=== PATIENT | female | born 1990 | race Caucasian/White ===

== ENCOUNTER 2022-01-18 14:24 | Emergency (ER) | payer MEDICAID, OTHER ==
[~2022-01-18] VITALS: Ht 172 cm; Wt 117.9 kg
[2022-01-18] MEDS ORDERED: morphine INJ 10 MG/ML 1ML (SYR OR VIAL) IVP STA (14:29)
--- NOTE | 2022-01-18 14:38 | ED Fall/Injury ---
General Chief Complaint: Trauma-Non Activation Stated Complaint: FELL Source: patient Exam Limitations: no limitations (EDER MCDONOUGH APRN) History of Present Illness Date Seen by Provider: Jan 18, 2022 Time Seen by Provider: 14:33 Initial Comments to ER by [facility] with reports of severe low back pain after a fall. She states that this happened just prior to arrival she fell going down some stairs landing on her buttock. She has some severe pain to the low back at the top of the gluteal cleft, she has some tingling pain going down the right leg. No loss of bowel or bladder control. She does have some pain in the midthoracic spine. She did hit the back of her head but did not lose consciousness. She was given 4 mg of Zofran and 50 mcg of fentanyl in route to the hospital by EMS. History of protein S deficiency for which she is on aspirin daily. She smokes about 5 to 10 cigarettes/day. History of uterine ablation. Occurred: just prior to arrival Severity: moderate Injuries/Pain Location: back Context: unknown Loss of Consciousness: no loss of consciousness Modifying Factors: Worse With Movement Associated Symptoms (Fall): Denies Symptoms (EDER MCDONOUGH APRN) Allergies and Home Medications Allergies Coded Allergies: ciprofloxacin (Verified Allergy, Unknown, 01/18/22) clindamycin (Verified Allergy, Unknown, 01/18/22) Patient Home Medication List Home Medication List Reviewed: Yes (EDER MCDONOUGH APRN) Hydrocodone/Acetaminophen (Hydrocodone-Acetamin 5-325 mg) 1 Each Tablet, 1 TAB PO Q4H PRN for PAIN-MODERATE (5-7) Prescribed by: EDER MCDONOUGH on 01/18/22 1523 Ibuprofen (Ibuprofen) 800 Mg Tablet, 800 MG PO Q8H PRN for PAIN Prescribed by: EDER MCDONOUGH on 01/18/22 1522 Review of Systems Review of Systems Constitutional: see HPI Eyes: No Symptoms Reported Ears, Nose, Mouth, Throat: no symptoms reported Respiratory: no symptoms reported Cardiovascular: no symptoms reported Genitourinary: no symptoms reported Musculoskeletal: see HPI, back pain Skin: no symptoms reported Psychiatric/Neurological: No Symptoms Reported (EDER MCDONOUGH APRN) Past Oiajsua-Exehkq-Tjwase Hx Patient Social History Tobacco Use?: Yes Tobacco type used: Cigarettes Smoking Status: Current Everyday Smoker Substance use?: No Alcohol Use?: No Pt feels they are or have been: No (EDER MCDONOUGH APRN) Past Medical History Surgery/Hospitalization HX: PMH: ANXIETY (EDER MCDONOUGH APRN) Physical Exam Vital Signs Vital Signs - First Documented 01/18/22 14:30 Temp 36.2 Pulse 76 Resp 18 B/P (MAP) 139/83 (101) Pulse Ox 100 (ANITA NORMAN MD) Vital Signs Capillary Refill : (EDER MCDONOUGH APRN) Height, Weight, BMI Height: '" Weight: lbs. oz. kg; BMI Method: General Appearance: WD/WN, no apparent distress HEENT: PERRL/EOMI, normal ENT inspection Neck: non-tender, full range of motion Respiratory: no respiratory distress, no accessory muscle use Gastrointestinal: normal bowel sounds, non tender, soft Back: other (She is preferentially laying on her left side. She is in a rigid cervical collar. Complains of severe pain tenderness to palpation over the sacrum and lumbar spine as well as the thoracic spine. No pain in the cervical spine.) Extremities: normal range of motion, non-tender Neurologic/Psychiatric: alert, normal mood/affect, oriented x 3 Skin: normal color, warm/dry (EDER MCDONOUGH APRN) Progress/Results/Core Measures Results/Orders Vital Signs/I&O 01/18/22 01/18/22 14:30 15:41 Temp 36.2 Pulse 76 70 Resp 18 16 B/P (MAP) 139/83 (101) 122/76 Pulse Ox 100 99 (ANITA NORMAN MD) Diagnostic Imaging Diagonstic Imaging: CT Comments [facility] [place] [place] NAME: TRACYNITIN MED REC#: [id number] PT STATUS: REG ER : 1990 PHYSICIAN: EDER MCDONOUGH APRN ADMIT DATE: 01/18/22/ER Draft Date of Exam:01/18/22 CT HEAD/CERVICAL SPINE WO PROCEDURE: CT head and CT cervical spine without contrast. TECHNIQUE: Multiple contiguous axial images were obtained through the brain and cervical spine without the use of intravenous contrast. Sagittal and coronal reformations through the cervical spine were then performed. Auto Exposure Controls were utilized during the CT exam to meet ALARA standards for radiation dose reduction. INDICATION: Fall. COMPARISON: No prior studies are available for comparison. CT HEAD: Ventricles and sulci are within normal limits. No sulcal effacement or midline shift is identified. No acute intra-axial or extra-axial hemorrhage is detected. Cisterns are patent. Visualized paranasal sinuses are clear. IMPRESSION: No acute intracranial process is detected. CT CERVICAL SPINE: Alignment is normal. There is degenerative disc disease at the C5-C6 level with disc space narrowing and marginal spurring. No fractures are seen. Prevertebral tissues are within normal limits. Odontoid is intact. IMPRESSION: Cervical spondylosis. No acute bony abnormality is detected. Dictated on workstation # [id number] Dict: 01/18/22 1506 Trans: 01/18/22 1509 PJE [id number] Interpreted by: NOHELIA DEJESUS MD Electronically signed by: (EDER MCDONOUGH APRN) Departure Communication (Admissions) NAME: NITIN MOLINA Ángela [facility] REC#: [id number] PT STATUS: REG ER : 1990 PHYSICIAN: EDER MCDONOUGH APRN ADMIT DATE: 01/18/22/ER Draft Date of Exam:01/18/22 CT THORACIC/LUMBAR SPINE WO EXAMINATION: CT thoracic and lumbar spine without contrast. TECHNIQUE: Multiple contiguous axial images were obtained through the thoracic and lumbar spine without the use of intravenous contrast. Sagittal and coronal reformations were then performed. All CT scans use one or more of the following dose optimizing techniques: automated exposure control, MA and/or KvP adjustment based on patient size and exam type or iterative reconstruction. HISTORY: Back pain after fall. COMPARISON: None available. FINDINGS: The alignment of the thoracic and lumbar spine is normal. Vertebral body heights are normal and no fracture is seen. Facet joints are normal. Disc heights are normal. There is no spinal canal stenosis. Limited views of the soft tissues show no abnormality. The aorta is normal. IMPRESSION: No acute osseous abnormality of the thoracic or lumbar spine. Dictated on workstation # [id number] Dict: 01/18/22 1513 Trans: 01/18/22 1520 PJE [id number] Interpreted by: SHANE,ALICIA C DO Electronically signed by: (EDER MCDONOUGH APRN) Impression Primary Impression: Acute low back pain Disposition: 01 HOME, SELF-CARE Condition: Stable Departure-Patient Inst. Decision time for Depature: 15:19 (EDER MCDONOUGH APRN) Patient Instructions: Low Back Pain ED Add. Discharge Instructions: 1. Medication as directed. Rest. Activity as tolerated. All discharge instructions reviewed with patient and/or family. Voiced understanding. Scripts Ibuprofen (Ibuprofen) 800 Mg Tablet 800 MG PO Q8H PRN for PAIN, #30 TAB 0 Refills Prov: EDER MCDONOUGH APRN 01/18/22 Hydrocodone/Acetaminophen (Hydrocodone-Acetamin 5-325 mg) 1 Each Tablet 1 TAB PO Q4H PRN for PAIN-MODERATE (5-7), #10 TAB Prov: EDER MCDONOUGH APRN 01/18/22 Work/School Note: Work Release Form Date Seen in the Emergency Department: Jan 18, 2022 Return to Work: Jan 21, 2022 ATTENDING PHYSICIAN NOTE: I was physically present as attending physician in the emergency department during the care of this patient, but I was not directly involved in the decision making or delivery of care for this patient. (ANITA NORMAN MD) EDER MCDONOUGH APRN Jan 18, 2022 14:38 ANITA NORMAN MD Jan 20, 2022 12:59
--- NOTE | 2022-01-18 15:10 | Diagnostic Imaging Report ---
PROCEDURE: CT head and CT cervical spine without contrast. TECHNIQUE: Multiple contiguous axial images were obtained through the brain and cervical spine without the use of intravenous contrast. Sagittal and coronal reformations through the cervical spine were then performed. Auto Exposure Controls were utilized during the CT exam to meet ALARA standards for radiation dose reduction. INDICATION: Fall. COMPARISON: No prior studies are available for comparison. CT HEAD: Ventricles and sulci are within normal limits. No sulcal effacement or midline shift is identified. No acute intra-axial or extra-axial hemorrhage is detected. Cisterns are patent. Visualized paranasal sinuses are clear. IMPRESSION: No acute intracranial process is detected. CT CERVICAL SPINE: Alignment is normal. There is degenerative disc disease at the C5-C6 level with disc space narrowing and marginal spurring. No fractures are seen. Prevertebral tissues are within normal limits. Odontoid is intact. IMPRESSION: Cervical spondylosis. No acute bony abnormality is detected. Dictated by: Dictated on workstation # [id number]
--- NOTE | 2022-01-18 15:20 | Diagnostic Imaging Report ---
EXAMINATION: CT thoracic and lumbar spine without contrast. TECHNIQUE: Multiple contiguous axial images were obtained through the thoracic and lumbar spine without the use of intravenous contrast. Sagittal and coronal reformations were then performed. All CT scans use one or more of the following dose optimizing techniques: automated exposure control, MA and/or KvP adjustment based on patient size and exam type or iterative reconstruction. HISTORY: Back pain after fall. COMPARISON: None available. FINDINGS: The alignment of the thoracic and lumbar spine is normal. Vertebral body heights are normal and no fracture is seen. Facet joints are normal. Disc heights are normal. There is no spinal canal stenosis. Limited views of the soft tissues show no abnormality. The aorta is normal. IMPRESSION: No acute osseous abnormality of the thoracic or lumbar spine. Dictated by: Dictated on workstation # [id number]
[2022-01-18] MEDS ORDERED: ACHD5005 PO (15:22)
[2022-01-18] MEDS ORDERED: IBUP-1780 PO (15:22)
[2022-01-18] MEDS ORDERED: KETOROLAC 30 MG/ML VIAL IVP ONE (15:30)
[2022-01-18 15:41] VITALS: BP 122/76
== END 2022-01-18 15:41 | disposition home or self-care (01) ==
LOC: ER 14:25
DX: M54.50 Low back pain, unspecified (principal); F17.210 Nicotine dependence, cigarettes, uncomplicated
CPT/HCPCS: 70450; 72125; 72128; 72131

== ENCOUNTER 2022-01-22 00:08 | Emergency (ER) | payer MEDICAID ==
[~2022-01-22 00:08] MED LIST: ACHD5005 PO; IBUP-1780 PO
--- NOTE | 2022-01-22 00:45 | ED Fall/Injury ---
General Chief Complaint: Back Problems Stated Complaint: TAILBONE PAIN,FALL ON 01.18.22 Nursing Triage Note: PT TO ER BY WC WITH FAMILY WITH C/O TAILBONE PAIN THAT HAS WORSENED SINCE A FALL THURSDAY. PT STATES THE PAIN FEELS LIKE IT IS MOVING TOWARD HER PELVIC AREA AND PUBIC AREA Source: patient, old records History of Present Illness Date Seen by Provider: Jan 22, 2022 Time Seen by Provider: 00:24 Initial Comments PT ARRIVES VIA POV FROM HOME PT WAS SEEN HERE ON 01/18/22 AFTER SLIPPING AND FALLING DOWN 3 CONCRETE STEPS ON HER FRONT PORCH PT STATES SHE HIT THE BACK OF HER HEAD, AND HAD BRIEF LOSS OF CONSCIOUS--"FOR A FEW SECONDS" STATES SHE ALSO HIT HER BACK ON A STEP WELL PT HAD CT OF HEAD AND CERVICAL SPINE, THORACIC AND LUMBAR SPINE--ALL WHICH DID NOT SHOW ANY ACUTE INJURY PT WAS GIVEN RX FOR HYDROCODONE AND IBUPROFEN 800 --STATES SHE TOOK 1 AT [facility]700 ON 01/21/22 STATES SHE TOOK A TYLENOL AND IBUPROFEN AT 1730 TONIGHT C/O PAIN TO TAILBONE--HURTS TO STAND OR WALK, HURTS TO STRAIN TO HAVE A BM STATES PAIN IS NOW GOING AROUND TO THE FRONT TO HER PUBIC BONE AND PELVIC AREA NO VAGINAL BLEEDING OR RECTAL BLEEDING NO LOSS OF BOWEL OR BLADDER CONTROL RIGHT LEG FEELS TINGLY AT TIMES STATES HER NECK IS SORE AND SHE IS JUST SORE ALL OVER DENIES ANY PRIOR NECK OR BACK PROBLEMS PT HAS HAD HISTORY OF PROTEIN S DEFICIENCY AND TAKES 81 MG ASPIRIN DAILY STATES SHE HAD A BLOOD CLOT IN HER UTERUS WHEN SHE WAS . NO OTHER BLOOD CLOTS PT HAS HAD A UTERINE ABLATION AND DOES NOT HAVE PERIODS ANYMORE. PT JUST MOVED HERE 1 WEEK AGO FROM [place]. PT IS NOT EMPLOYED Allergies and Home Medications Allergies Coded Allergies: ciprofloxacin (Verified Allergy, Unknown, 01/18/22) clindamycin (Verified Allergy, Unknown, 01/18/22) Patient Home Medication List Home Medication List Reviewed: Yes Cyclobenzaprine HCl (Cyclobenzaprine HCl) 10 Mg Tablet, 10 MG PO Q8H PRN for SPASMS Prescribed by: MARIELLA BARCLAY on 01/22/22 0146 Hydrocodone/Acetaminophen (Hydrocodone-Acetamin 5-325 mg) 1 Each Tablet, 1 TAB PO Q4H PRN for PAIN-MODERATE (5-7) Prescribed by: EDER MCDONOUGH on 01/18/22 1523 Ibuprofen (Ibuprofen) 800 Mg Tablet, 800 MG PO Q8H PRN for PAIN Prescribed by: EDER MCDONOUGH on 01/18/22 1522 Review of Systems Review of Systems Constitutional: no symptoms reported Eyes: No Symptoms Reported Ears, Nose, Mouth, Throat: no symptoms reported Respiratory: no symptoms reported Cardiovascular: no symptoms reported Gastrointestinal: no symptoms reported Genitourinary: no symptoms reported : No Musculoskeletal: see HPI Skin: no symptoms reported Psychiatric/Neurological: See HPI Past Afmwrkj-Qyiuys-Hpbfcf Hx Patient Social History Tobacco Use?: Yes Tobacco type used: Cigarettes Smoking Status: Current Everyday Smoker Substance use?: No Alcohol Use?: No Immunizations Up To Date Influenza Vaccine Up-to-Date: No; Not Current Past Medical History Surgery/Hospitalization HX: PMH: ANXIETY Surgeries: Yes (D&C; UTERINE ABLATION) Adenoidectomy, Tonsillectomy Respiratory: No Cardiac: No Neurological: No Reproductive Disorders: Yes (S/P UTERINE ABLATION) Female Reproductive Disorders: Menstrual Problems Genitourinary: No Gastrointestinal: No Musculoskeletal: No Endocrine: No (OBESE) HEENT: No Cancer: No Psychosocial: No Integumentary: No Blood Disorders: Yes (PROTEIN S DEFICIENCY-ON 81 MG ASA;HX OF BLOOD CLOT IN UTERUS W/) Physical Exam Vital Signs Vital Signs - First Documented 01/22/22 00:20 Temp 35.8 Pulse 91 Resp 18 B/P (MAP) 129/74 (92) Capillary Refill : Height, Weight, BMI Height: '" Weight: lbs. oz. kg; 39.00 BMI Method: General Appearance: obese, other (MOVES SLOWLY AND DRAMATICALLY; EXAGGERATED PAIN RESPONSE) Neck: non-tender, full range of motion, supple, normal inspection Cardiovascular: normal peripheral pulses, regular rate, rhythm, no murmur Respiratory: chest non-tender, normal breath sounds, no respiratory distress, no accessory muscle use Peripheral Pulses: 2+ Dorsalis Pedis (R), 2+ Left Dors-Pedis (L), 2+ Radial Pulses (R), 2+ Radial Pulses (L) Gastrointestinal: non tender, soft Back: other (DIFFUSE BACK TENDERNESS,BUT IS MOST TENDER OVER SACRUM AND COCCYX AREA AND BILATERAL SI JOINT AREAS. ALSO TENDER ANTERIORLY OVER PUBIC BONE. ) Extremities: normal range of motion, no pedal edema, no calf tenderness, normal capillary refill, other (MILD TENDERNESS TO BILATERAL ANTERIOR THIGH MUSCLES. NO BONY TENDERNSS. 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 ) Moises Coma Score Best Eye Response: (4) Open Spontaneously Best Verbal Response: (5) Oriented Best Motor Response: (6) Obeys Commands Moises Total: 15 Progress/Results/Core Measures Results/Orders My Orders Orders - MARIELLA BARCLAY DO Ct Pelvis Wo (01/22/22 00:36) Ondansetron Oral Dissolve Tab (Zofran (01/22/22 01:30) Rx-Cyclobenzaprine Tablet (Rx-Flexeril T (01/22/22 01:48) Medications Given in ED Current Medications Medications Dose Ordered Sig/Carmela Route Start Time Stop Time Status Last Admin Dose Admin Ondansetron HCl 4 mg ONCE ONCE PO 01/22/22 01:30 01/22/22 01:31 DC 01/22/22 01:30 4 MG Vital Signs/I&O 01/22/22 00:20 Temp 35.8 Pulse 91 Resp 18 B/P (MAP) 129/74 (92) Blood Pressure Mean: 92 Progress Progress Note : Progress Note REVIEWED CT SCANS DONE ON 01/18/22. DO NOT COMPLETELY VIEW SACRUM AND COCCYX, NOR PELVIS. WILL OBTAIN DESIGNATED PELVIS CT TO VIEW THESE AREAS. Diagnostic Imaging Comments CT PELVIS--COMMINUTED FRACTURE OF DISTAL TIP OF COCCYX--PER STAT RAD VIA FAX AT 1990 Reviewed: Reviewed by Me Departure Impression Primary Impression: REPORTED FALL DOWN STEPS Additional Impression: Fractured coccyx Disposition: HOME, SELF-CARE Condition: Stable Departure-Patient Inst. Decision time for Depature: 01:44 Referrals: NO,LOCAL PHYSICIAN (PCP/Family) Primary Care Physician Patient Instructions: Coccyx Fracture (DC), Back Muscle Strain (DC) Add. Discharge Instructions: CONTINUE IBUPROFEN EVERY 6 HOURS FOR PAIN MAY USE HYDROCODONE EVERY 6 HOURS NEEDED FOR PAIN UNRELIEVED BY IBUPROFEN ICE TO AREA AT 20 MINUTE INTERVALS YOU MAY PURCHASE A "DONUT" CUSHION FOR COMFORT WITH SITTING USE MIRALAX DAILY TO KEEP STOOLS SOFT/LOOSE--AVOID CONSTIPATION AND STRAINING TO HAVE A BOWEL MOVEMENT FOLLOW UP WITH [facility] OF CHOICE IN 1 WEEK FOR FURTHER CARE--LIST OF LOCAL PROVIDERS GIVEN All discharge instructions reviewed with patient and/or family. Voiced understanding. Scripts Cyclobenzaprine HCl (Cyclobenzaprine HCl) 10 Mg Tablet 10 MG PO Q8H PRN for SPASMS, #15 TAB 0 Refills Prov: MARIELLA BARCLAY DO 01/22/22 Work/School Note: Local Medical Staff Listing MARIELLA BARCLAY DO Jan 22, 2022 00:45
[2022-01-22] MEDS ORDERED: ONDANSETRON 4 MG (ZOFRAN) ORAL DISSOLVE TAB PO ONE (01:30)
[2022-01-22] MEDS ORDERED: CYCL10TA25 PO (01:46)
[2022-01-22] MEDS ORDERED: RX-CYCLOBENZAPRINE 10 MG (FLEXERIL) TAB PPK#3 PO STA (01:48)
[2022-01-22 01:54] VITALS: BP 127/72
--- NOTE | 2022-01-22 07:16 | Diagnostic Imaging Report ---
PROCEDURE: CT pelvis without contrast. TECHNIQUE: Multiple contiguous axial images were obtained through the pelvis without the use of intravenous contrast. Sagittal and coronal reformations were performed. Auto Exposure Controls were utilized during the CT exam to meet ALARA standards for radiation dose reduction. INDICATION: Fall with pain in the tailbone. FINDINGS: There is a mildly comminuted fracture of the very distal coccyx. There is adjacent hematoma. No significant displacement is seen. Bony pelvis is otherwise intact. Degenerative changes noted of the SI joints. Bowel gas pattern is normal. No free air or free fluid. No intra-abdominal masses. IMPRESSION: Comminuted fracture tip of the coccyx with adjacent associated edema and hematoma. These findings are in agreement with the preliminary report. Dictated by: Dictated on workstation # [id number]
== END 2022-01-22 01:56 | disposition home or self-care (01) ==
LOC: EDUNIT# 00:08 → ER 00:11
DX: S32.2XXA Fracture of coccyx, initial encounter for closed fracture (principal); E66.9 Obesity, unspecified; F17.210 Nicotine dependence, cigarettes, uncomplicated; Z68.39 Body mass index [BMI] 39.0-39.9, adult; W10.9XXA Fall (on) (from) unspecified stairs and steps, initial encounter
CPT/HCPCS: 72192